=== PATIENT | female | born 1995 | race Caucasian/White ===

== ENCOUNTER 2018-10-28 07:58 | Emergency (ER) | payer SELFPAY ==
[2018-10-28 08:08] VITALS: BP 101/75
--- NOTE | 2018-10-28 08:11 | UC ---
Respiratory Complaint HPI - HPI Summary HPI Summary: SEVERAL DAYS OF COUGH AND NASAL CONGESTION. FEELS WHEEZY. HAS A HISTORY OF ASTHMA BUT STATES HER ALBUTEROL IS NOT HELPING. NO FEVER. NO N/V. SX WORSE WHEN LAYING FLAT. - History of Current Complaint Chief Complaint: UCRespiratory Stated Complaint: COUGH, AND CHEST CONGESTION Time Seen by Provider: 10/28/18 08:10 Hx Obtained From: Patient Hx Last Menstrual Period: current Onset/Duration: Gradual Onset, Lasting Days, Still Present Timing: Constant Severity Initially: Moderate Severity Currently: Moderate Pain Intensity: 0 Pain Scale Used: 0-10 Numeric Character: Cough: Nonproductive Aggravating Factors: Recumbent Position Alleviating Factors: Nothing Associated Signs And Symptoms: Positive: Wheezing, URI, Nasal Congestion. Negative: Dyspnea, Fever, Pleuritic Chest Pain - Allergies/Home Medications Allergies/Adverse Reactions: Allergies Allergy/AdvReac Type Severity Reaction Status Date / Time cefaclor [From Ceclor] Allergy Hives Verified 10/28/18 08:09 PMH/Surg Hx/FS Hx/Imm Hx Respiratory History: Asthma - Surgical History Surgical History: None - Family History Known Family History: Positive: Non-Contributory - Social History Alcohol Use: Occasionally Substance Use Type: None Smoking Status (MU): Current Some Day Smoker Amount Used/How Often: 4x/month Review of Systems All Other Systems Reviewed And Are Negative: Yes Constitutional: Positive: Negative ENT: Positive: Sore Throat, Nasal Discharge Respiratory: Positive: Cough, Other - WHEEZE Cardiovascular: Positive: Negative Gastrointestinal: Positive: Negative Physical Exam Triage Information Reviewed: Yes Appearance: Well-Appearing, No Pain Distress, Well-Nourished Vital Signs: Initial Vital Signs Temp 97.9 F 10/28/18 08:05 Pulse 82 10/28/18 08:05 Resp 22 10/28/18 08:05 BP 101/75 10/28/18 08:05 Pulse Ox 97 10/28/18 08:05 Vital Signs Reviewed: Yes Eyes: Positive: Conjunctiva Clear ENT: Positive: Hearing grossly normal, Pharynx normal, TMs normal Neck: Positive: Supple, Nontender, No Lymphadenopathy Respiratory Exam: Normal Respiratory: Negative: Wheezing Cardiovascular Exam: Normal Abdomen Description: Positive: Soft Musculoskeletal: Positive: No Edema Neurological: Positive: Alert Psychological: Positive: Age Appropriate Behavior Skin: Negative: Rashes Respiratory Course/Dx - Course Course Of Treatment: PATIENT LIKELY HAS A VIRAL URI. THERE MAY BE AN ALLERGIC COMPONENT TO THIS SO I RECOMMENDED SHE TAKE AN ANTIHISTAMINE DAILY. SHE IS NOT WHEEZING AT ALL ON EXAM HOWEVER GIVEN HER HISTORY OF ASTHMA AND HER SENSATION OF BEING TIGHT WILL GO AHEAD AND GIVE PREDNISONE ONCE DAILY FOR 5 DAYS. NO INDICATION FOR ANTIBIOTICS AT PRESENT. FOLLOW-UP IF NOT IMPROVING EXPECTED OVER THE NEXT WEEK OR 2. - Differential Dx/Diagnosis Provider Diagnosis: Acute upper respiratory infection Discharge ED - Sign-Out/Discharge Documenting (check all that apply): Patient Departure All imaging exams completed and their final reports reviewed: No Studies - Discharge Plan Condition: Stable Disposition: HOME Prescriptions: predniSONE TAB* [Deltasone 20 MG TAB*] 40 mg PO DAILY #10 tab Patient Education Materials: Upper Respiratory Infection (ED) Referrals: Sana Dunne MD [Primary Care Provider] - If Needed Additional Instructions: YOUR SYMPTOMS ARE LIKELY VIRALLY MEDIATED AND SHOULD RESOLVE ON THEIR OWN WITH TIME. NO INDICATION FOR ANTIBIOTICS AT PRESENT. REST, HYDRATE, OTC MEDS NEEDED. CONSIDER A DAILY ANTIHISTAMINE TO COVER FOR ANY ALLERGIC COMPONENT. CONTINUE TO USE YOUR INHALER PRESCRIBED. WILL TREAT WITH PREDNISONE TO HELP WITH AIRWAY INFLAMMATION. SEEK FOLLOW-UP IF YOU ARE NOT IMPROVING OVER THE NEXT 1-2 WEEKS. USE OTC AFRIN FOR NASAL CONGESTION. 2 SPRAYS IN EACH NOSTRIL TWICE DAILY NEEDED. DO NOT USE FOR MORE THAN 3-4 DAYS IN A ROW TO PREVENT DEVELOPING REBOUND CONGESTION. - Billing Disposition and Condition Condition: STABLE Disposition: Home
== END 2018-10-28 09:03 | disposition home or self-care (01) ==
LOC: UCEAST 07:58
DX: J06.9 Acute upper respiratory infection, unspecified (principal); J45.909 Unspecified asthma, uncomplicated; F17.210 Nicotine dependence, cigarettes, uncomplicated
CPT/HCPCS: 99212; G0463